=== PATIENT | female | born 1990 | race Caucasian/White ===

== ENCOUNTER 2021-03-18 14:53 | Outpatient (REF) | payer BC, SELFPAY ==
[2021-03-20 15:45] LABS: COVID-19 RT-PCR UVMMC Result Negative (Negative)
== END 2021-03-18 14:54 | disposition home or self-care (01) ==
LOC: NCHCN 14:53
PROVIDERS: Visit Provider Internal Medicine
DX: Z20.822 Contact with and (suspected) exposure to COVID-19 (principal); J06.9 Acute upper respiratory infection, unspecified
CPT/HCPCS: U0003